=== PATIENT | female | born 1980 | race Caucasian/White ===

== ENCOUNTER → 2022-04-18 | Outpatient (CLI) | payer OTHER | LOC: LAB SHORT 13:47 | DX: R35.0 Frequency of micturition (principal) | CPT/HCPCS: 87086 ==

== ENCOUNTER 2025-03-30 06:15 | Day surgery (SDC) | payer OTHER ==
[2025-03-30] VITALS (18 sets, daily range): BP systolic 102–135; BP diastolic 52–88
[~2025-03-30] VITALS: Ht 170.2 cm; Wt 111.6 kg
[~2025-03-30 06:15] MED LIST: ACYC400 PO
[2025-03-30] MEDS ORDERED: Lactated Ringer's 1,000 ML IV SCH ×2 (06:25→09:40)
[2025-03-30] MEDS ORDERED: CeFAZolin Sodium 2,000 MG in NS 100 ML IV SCH (06:25)
--- NOTE | 2025-03-30 07:01 | NUR ---
History, Chart, Medications and Allergies reviewed before start of procedure. Pre-Op teaching done. Pt verbalizes understanding. Patient States Post-Procedure ride home has been arranged. Pts belongings to OR with patient. Pts glasses to PACU with pt label.
[2025-03-30] MEDS ORDERED: Midazolam HCl 1MG / ML 2ML Vial ONE (07:13)
[2025-03-30] MEDS ORDERED: Bupivacaine 0.5% W/EPI 1:200000 SDV 30 ML Vial ONE (07:13)
[2025-03-30] MEDS ORDERED: FentaNYL Citrate 50 MCG/ML 2 ML Injection ONE (07:13)
[2025-03-30] MEDS ORDERED: propofoL 20 ML IV ONE (07:14)
[2025-03-30] MEDS ORDERED: Rocuronium Bromide 10 MG/ML 5ML Injection IV ONE ×2 (07:16→08:03)
[2025-03-30] MEDS ORDERED: Dexamethasone Sod Phos 10 MG/ML 1ML VIAL ONE (07:16)
[2025-03-30] MEDS ORDERED: Lidocaine HCl 2% 20 ML MDV ONE (07:16)
[2025-03-30] MEDS ORDERED: ePHEDrine Sulfate 50 MG/ML 1ML Injection ONE (07:52)
[2025-03-30] MEDS ORDERED: HYDROmorphone HCl/Pf 1MG SYR ONE ×2 (08:02→10:00)
[2025-03-30] MEDS ORDERED: HYDROmorphone HCl/Pf 1MG SYR IV PRN ×2 (08:10→08:15)
[2025-03-30] MEDS ORDERED: Ondansetron HCl 2 MG / ML 2ML Vial IV PRN ×2 (08:10→09:40)
[2025-03-30] MEDS ORDERED: Labetalol HCL 5 MG/ML 4ML Injection (Single Dose) IV PRN (08:15)
[2025-03-30] MEDS ORDERED: FentaNYL Citrate 50 MCG/ML 2 ML Injection IV PRN ×3 (08:15→09:40)
[2025-03-30] MEDS ORDERED: Ondansetron HCl 2 MG / ML 2ML Vial ONE ×2 (09:08→10:24)
[2025-03-30] MEDS ORDERED: Ketorolac Tromethamine 30mg Vial ONE (09:08)
[2025-03-30] MEDS ORDERED: Sugammadex Sodium 200 MG/2ML SDV (100 MG/ML) ONE (09:09)
[2025-03-30] MEDS ORDERED: DiphenhydrAMINE HCL 25 MG Cap PO PRN (09:35)
[2025-03-30] MEDS ORDERED: HYDROcodone 5-APAP 325 TAB PO PRN (09:35)
[2025-03-30] MEDS ORDERED: Simethicone 80 MG Chew PO PRN (09:35)
[2025-03-30] MEDS ORDERED: OxyCODONE HCL 5 MG TAB PO PRN (09:35)
[2025-03-30] MEDS ORDERED: Ibuprofen 400 MG Tab PO PRN (09:40)
[2025-03-30] MEDS ORDERED: Acetaminophen 325 MG TABLET PO PRN (09:40)
--- NOTE | 2025-03-30 10:49 | NUR ---
PT ARRIVED TO 226 IN [facility]. TRANSFERRED PT FROM [facility] TO BED. ORIENTED TO USE OF CALL LIGHT AND PHONE AND PLACED WITHIN REACH. LCA. HRR. 02 SATS >92% ON 2L NC. BT HYPOX4. LAP INCISIONS TO ABD X2. SLIGHT OOZING NOTED AT UMBILICAL SITE. AMARA PAD CDI. PT REPORTS PAIN MINIMAL, RATING 1/10 AT THIS TIME. REPORTS NAUSEA IMPROVED AFTER NAUSEA MEDS IN PACU.
[2025-03-30] MEDS ORDERED: Ketorolac Tromethamine 30mg Vial IV SCH (12:00)
[2025-03-30] MEDS ORDERED: HYDR1TAB94 PO (12:39)
[2025-03-30] MEDS ORDERED: IBUP800 PO (12:40)
[2025-03-30 12:44] LABS: BASOPHILS ABSOLUTE AUTO 0.02 K/mm3 (0.00-0.23); BASOPHILS PERCENT AUTO 0 % (0-2); EOSINOPHILS ABSOLUTE AUTO 0.03 K/mm3 (0.00-0.68); EOSINOPHILS PERCENT AUTO 0 % (0-6); Hemoglobin 12.2 g/dL (11.5-16.0); IMMATURE GRAN ABSOLUTE AUTO 0.02 K/mm3 (0.00-0.10); IMMATURE GRAN PERCENT AUTO 0 % (0-1); LYMPHOCYTES PERCENT AUTO 6 % (21-46); MONOCYTES ABSOLUTE AUTO 0.09 K/mm3 (0.16-1.47); MONOCYTES PERCENT AUTO 1 % (4-13); Mean Corpuscular Volume 91 fL (80-100); Mean Platelet Volume 9.8 fL (9.1-12.4); NEUTROPHILS ABSOLUTE AUTO 11.69 K/mm3 (1.96-9.15); NEUTROPHILS PERCENT AUTO 92 % (41-73); Platelet Count 317 K/mm3 (150-400); RDW Coefficient Variation 13.2 % (11.7-14.2); RDW Standard Deviation 42.8 fL (35.1-46.3); Red Blood Cell Count 4.06 M/mm3 (3.80-5.20); White Blood Cell Count 12.65 K/mm3 (4.00-11.30)
--- NOTE | 2025-03-30 13:10 | NUR ---
DISCHARGED PT WANTED TO DC. ATE, VOIDED, AMBULATED AND REPORTED PAIN WELL CONTROLLED. DC'D INSTRUCTIONS REVIEWED, PAPERWORK SIGNED. VSS. PT LEFT UNIT IN WC, ACCOMPANIED BY SPOUSE.
== END 2025-03-30 13:25 | disposition home or self-care (01) ==
LOC: ORSCMMR 06:15 → ORD 07:30 → SURS 10:40 → ORSCMMR 13:25 → ORD 13:30
PROVIDERS: Obstetrics & Gynecology
PROC: 0UT9FZZ Resection of Uterus, Via Natural or Artificial Opening With Percutaneous Endoscopic Assistance (ICD-10-PCS; principal; 2025-03-30 07:30)
PROC: 0UT7FZZ Resection of Bilateral Fallopian Tubes, Via Natural or Artificial Opening With Percutaneous Endoscopic Assistance (ICD-10-PCS; principal; 2025-03-30 07:30)
DX: N93.8 Other specified abnormal uterine and vaginal bleeding (principal); D63.8 Anemia in other chronic diseases classified elsewhere; N80.03 Adenomyosis of the uterus; Z79.899 Other long term (current) drug therapy; Z87.891 Personal history of nicotine dependence; E66.9 Obesity, unspecified; Z68.38 Body mass index [BMI] 38.0-38.9, adult
CPT/HCPCS: 36415; 85025; 86850; 86900; 86901; 88305; 88307; A9270; J0690; J1100; J1171; J1885; J2250; J2405; J2704; J3010; J7120